=== PATIENT | male | born 1960 | race Caucasian/White ===

== ENCOUNTER 2017-08-08 07:42 | Emergency (ER) | payer BC ==
[2017-08-08] MEDS ORDERED: NS 0.9% 1000 ML* 1,000 ML IV ONE ×2 (07:53→08:29)
[2017-08-08] MEDS ORDERED: Nitroglycerin TAB 0.4 MG* 0.4 MG TAB SL ONE (08:06)
[2017-08-08] MEDS ORDERED: Aspirin Low Dose CHEW TAB* 81 MG PO ONE (08:06)
[2017-08-08 08:28] LABS: ABS Basophils 0 10^3/ul (0-0.2); ABS Eosinophils 0.1 10^3/ul (0-0.6); ABS Lymphocytes 1.4 10^3/ul (1.0-4.8); ABS Monocytes 0.6 10^3/ul (0-0.8); ABS Neutrophils 4.5 10^3/ul (1.5-7.7); ABS Nucleated RBC 0 10^3/ul; Eosinophil % 1.5 % (0-6); Hematocrit 44 % (42-52); Hemoglobin 15.1 g/dl (14.0-18.0); Lymphocyte % 21.1 % (25-47); Mean Corpuscular HGB Conc 34 g/dl (31-36); Mean Corpuscular Hemoglobin 31 pg (27-31); Mean Corpuscular Volume 89 fL (80-94); Mean Platelet Volume 9 um3 (7.4-10.4); Nucleated Red Blood Cells % 0; Platelet Count 213 10^3/ul (150-450); Red Blood Count 4.94 10^6/ul (4.0-5.4); Red Cell Distribution Width 13 % (10.5-15); White Blood Count 6.6 10^3/ul (3.5-10.8)
--- NOTE | 2017-08-08 08:28 | RAD ---
INDICATION: Left chest pain shortness of breath x4 days COMPARISON: None. TECHNIQUE: Single AP portable view of the chest was obtained. FINDINGS: Image quality is compromised due to the relative inferiority of a portable chest x-ray. The heart and mediastinum exhibit normal size and contour. At the left lateral lung base there is linear density. The more superior left lung and right lung are otherwise adequately aerated. There is no evidence of a large pleural effusion. Visualized bones are normal for the patient's age. IMPRESSION: Linear density at the left lung base could represent atelectasis or pneumonia depending on the patient's clinical presentation.
[2017-08-08] MEDS ORDERED: Ondansetron INJ* 2 MG/ML VIAL IV ONE (08:29)
[2017-08-08] MEDS ORDERED: Ondansetron INJ* 2 MG/ML VIAL ONE (08:31)
[2017-08-08 08:43] LABS: INR 0.94 (0.77-1.02)
[2017-08-08 08:46] LABS: EGFR Non-African American 77.6 (>60)
[2017-08-08] MEDS ORDERED: Iohexol 350* (CONTRAST) 500 ML MDV IV ONE (08:58)
--- NOTE | 2017-08-08 10:03 | RAD ---
Indication: Left chest pain. Contrast: Administered 69.1 ml of OMNIPAQUE 350 mg/ml CTA of the chest was performed after IV contrast administration. Coronal and sagittal reconstructed images were obtained. The pulmonary arterial tree is well opacified. There are no filling defects present to suggest pulmonary embolus. The aorta demonstrates no evidence of aortic dissection or aneurysmal dilatation of the aorta. There is a rounded low density in the prevascular space may represent some fluid or low density lymph node measuring 12 mm. The heart demonstrates no pericardial effusion. No other adenopathy is noted in the mediastinum or hilum. Inferior thyroid lobes are unremarkable. The trachea and major bronchi appear patent. There is airspace disease in the left base with left pleural effusion. This may represent pneumonia. Right lung field is clear. IMPRESSION: No evidence of pulmonary embolus is noted. No aortic dissection is noted. There is left pleural effusion with likely left lower lobe infiltrate. Likely low density lymph node in the prevascular space measuring up to 12 mm.
[2017-08-08] MEDS ORDERED: Ibuprofen TAB* 600 MG PO ONE (11:03)
--- NOTE | 2017-08-08 12:45 | ED ---
Weston Polo Angela, scribed for Rogelio Alvarez MD on 08/08/17 at 0757 . HPI Chest Pain - HPI Summary HPI Summary: This pt is 57 y/o male presenting to [facility] c/o intermittent left sided chest pain x3 days. Pt reports his pain is located under his left breast. He describes his pain as stabbing pain. Pt's pain is aggravated with palpation. Pt additionally notes SOB and having to catch his breath when talking. He notes his chest pain yesterday lasted approximately 30 to 45 minutes. Pt took Advil yesterday with complete relief. This morning pt reports he felt better and was driving to work at around 07:15 when he had sudden onset of stabbing chest pain. At its worst his pain is rated 7 out of 10 in severity. Denies abd pain, rash, LE swelling. He denies taking any aspirin today [employer]. 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 Pt has never had a stress test in the past. FHx: mother's brother had IN at around his age. - History of Current Complaint Chief Complaint: EDChestPainROMI Hx Obtained From: Patient Onset/Duration: Started Days Ago, Still Present Timing: Intermittent, Lasting Days Initial Severity: Severe Current Severity: Mild Pain Intensity: 7 Pain Scale Used: 0-10 Numeric Chest Pain Location: Left Anterior Chest Pain Radiates: No Character: Sharp/Stabbing - stabbing Aggravating Factor(s): Other: - palpation Alleviating Factor(s): Nothing Associated Signs and Symptoms: Positive: Chest Pain, Shortness of Breath. Negative: Fever, Abdominal Pain, Calf Pain/Swelling - Allergy/Home Medications Allergies/Adverse Reactions: Allergies Allergy/AdvReac Type Severity Reaction Status Date / Time No Known Allergies Allergy Verified 08/08/17 07:47 PMH/Surg Hx/FS Hx/Imm Hx Endocrine/Hematology History: Denies: Hx Diabetes Cardiovascular History: Reports: Other Cardiovascular Problems/Disorders - borderline high cholesterol Denies: Hx Hypertension Infectious Disease History: No Infectious Disease History: Denies: Traveled Outside the [place] in Last 30 Days - Family History Known Family History: Positive: Cardiac Disease - Mother's brother: IN at around 55 y/o Negative: Diabetes - Social History Alcohol Use: Daily Substance Use Type: Reports: Marijuana Smoking Status (MU): Never Smoked Tobacco Review of Systems Negative: Fever Positive: Chest Pain Positive: Shortness Of Breath Negative: Abdominal Pain Negative: Edema - in LE Negative: Rash All Other Systems Reviewed And Are Negative: Yes Physical Exam - Summary Physical Exam Summary: General: well-appearing, in a lot of pain distress Skin: warm, color reflects adequate perfusion, dry Head: normal Eyes: EOMI, JN ENT: normal Neck: supple, nontender Respiratory: CTA, breath sounds present Chest: tender to palpation on left anterior chest Cardiovascular: RRR Abdomen: soft, nontender Bowel: present Musculoskeletal: normal, strength/ROM intact Neurological: normal, sensory/motor intact, A&O x3 Psychological: affect/mood appropriate Triage Information Reviewed: Yes Vital Signs On Initial Exam: Initial Vitals Temp Pulse Resp BP Pulse Ox 97.3 F 69 16 120/74 100 08/08/17 07:43 08/08/17 07:43 08/08/17 07:43 08/08/17 07:43 08/08/17 07:43 Vital Signs Reviewed: Yes Diagnostics - Vital Signs Vital Signs Temp Pulse Resp BP Pulse Ox 08/08/17 07:43 97.3 F 69 16 120/74 100 - Laboratory Lab Results: Lab Results 08/08/17 08/08/17 08/08/17 Range/Units 08:17 08:17 08:17 WBC (3.5-10.8) 10^3/ul RBC (4.0-5.4) 10^6/ul Hgb (14.0-18.0) g/dl Hct (42-52) % MCV (80-94) fL MCH (27-31) pg MCHC (31-36) g/dl RDW (10.5-15) % Plt Count (150-450) 10^3/ul MPV (7.4-10.4) um3 Neut % (Auto) (38-83) % Lymph % (Auto) (25-47) % Benton % (Auto) (0-7) % Eos % (Auto) (0-6) % Baso % (Auto) (0-2) % Absolute Neuts (auto) (1.5-7.7) 10^3/ul Absolute Lymphs (auto) (1.0-4.8) 10^3/ul Absolute Monos (auto) (0-0.8) 10^3/ul Absolute Eos (auto) (0-0.6) 10^3/ul Absolute Basos (auto) (0-0.2) 10^3/ul Absolute Nucleated RBC 10^3/ul Nucleated RBC % INR (Anticoag Therapy) 0.94 (0.77-1.02) APTT 35.3 (26.0-36.3) seconds D-Dimer, Quantitative < 200 (Less Than 230) ng/mL Sodium 136 (133-145) mmol/L Potassium 4.2 (3.5-5.0) mmol/L Chloride 101 (101-111) mmol/L Carbon Dioxide 31 (22-32) mmol/L Anion Gap 4 (2-11) mmol/L BUN 11 (6-24) mg/dL Creatinine 1.00 (0.67-1.17) mg/dL Est GFR ( Amer) 99.8 (>60) Est GFR (Non-Af Amer) 77.6 (>60) BUN/Creatinine Ratio 11.0 (8-20) Glucose 97 (70-100) mg/dL Lactic Acid (0.5-2.0) mmol/L Calcium 9.8 (8.6-10.3) mg/dL Magnesium 1.9 (1.9-2.7) mg/dL Total Bilirubin 0.60 (0.2-1.0) mg/dL AST 14 (13-39) U/L ALT 15 (7-52) U/L Alkaline Phosphatase 67 (34-104) U/L Total Creatine Kinase 142 (10-223) U/L CK-MB (CK-2) 1.2 (0.6-6.3) ng/mL Troponin I 0.00 (<0.04) ng/mL B-Natriuretic Peptide 23 ( - 100) pg/mL Total Protein 6.9 (6.4-8.9) g/dL Albumin 4.4 (3.2-5.2) g/dL Globulin 2.5 (2-4) g/dL Albumin/Globulin Ratio 1.8 (1-3) Lipase 18 (11.0-82.0) U/L TSH 3.95 (0.34-5.60) mcIU/mL 08/08/17 08/08/17 08/08/17 Range/Units 08:17 08:17 10:45 WBC 6.6 (3.5-10.8) 10^3/ul RBC 4.94 (4.0-5.4) 10^6/ul Hgb 15.1 (14.0-18.0) g/dl Hct 44 (42-52) % MCV 89 (80-94) fL MCH 31 (27-31) pg MCHC 34 (31-36) g/dl RDW 13 (10.5-15) % Plt Count 213 (150-450) 10^3/ul MPV 9 (7.4-10.4) um3 Neut % (Auto) 67.3 (38-83) % Lymph % (Auto) 21.1 L (25-47) % Benton % (Auto) 9.5 H (0-7) % Eos % (Auto) 1.5 (0-6) % Baso % (Auto) 0.6 (0-2) % Absolute Neuts (auto) 4.5 (1.5-7.7) 10^3/ul Absolute Lymphs (auto) 1.4 (1.0-4.8) 10^3/ul Absolute Monos (auto) 0.6 (0-0.8) 10^3/ul Absolute Eos (auto) 0.1 (0-0.6) 10^3/ul Absolute Basos (auto) 0 (0-0.2) 10^3/ul Absolute Nucleated RBC 0 10^3/ul Nucleated RBC % 0 INR (Anticoag Therapy) (0.77-1.02) APTT (26.0-36.3) seconds D-Dimer, Quantitative (Less Than 230) ng/mL Sodium (133-145) mmol/L Potassium (3.5-5.0) mmol/L Chloride (101-111) mmol/L Carbon Dioxide (22-32) mmol/L Anion Gap (2-11) mmol/L BUN (6-24) mg/dL Creatinine (0.67-1.17) mg/dL Est GFR ( Amer) (>60) Est GFR (Non-Af Amer) (>60) BUN/Creatinine Ratio (8-20) Glucose (70-100) mg/dL Lactic Acid 0.9 (0.5-2.0) mmol/L Calcium (8.6-10.3) mg/dL Magnesium (1.9-2.7) mg/dL Total Bilirubin (0.2-1.0) mg/dL AST (13-39) U/L ALT (7-52) U/L Alkaline Phosphatase (34-104) U/L Total Creatine Kinase (10-223) U/L CK-MB (CK-2) (0.6-6.3) ng/mL Troponin I 0.00 (<0.04) ng/mL B-Natriuretic Peptide ( - 100) pg/mL Total Protein (6.4-8.9) g/dL Albumin (3.2-5.2) g/dL Globulin (2-4) g/dL Albumin/Globulin Ratio (1-3) Lipase (11.0-82.0) U/L TSH (0.34-5.60) mcIU/mL Result Diagrams: 18 08:17 18 08:17 Lab Statement: Any lab studies that have been ordered have been reviewed, and results considered in the medical decision making process. - Radiology Chest XR Xray Interpretation: Positive (See Comments) - IMPRESSION: Linear density at the left lung base could represent atelectasis or pneumonia depending on the patient's clinical presentation. Dr. Alvarez has reviewed this radiology report. Radiology Interpretation Completed By: Radiologist - CT Chest/Thorax CTA CT Interpretation: Positive (See Comments) - IMPRESSION: No evidence of pulmonary embolus is noted. No aortic dissection is noted. There is left pleural effusion with likely left lower lobe infiltrate. Likely low density lymph node in the prevascular space measuring up to [address] Alvarez has reviewed this radiology report. CT Interpretation Completed By: Radiologist - EKG 07:58 Cardiac Rate: NL EKG Rhythm: Sinus Rhythm - at [address] Segment: Normal Ectopy: None 08:30 Cardiac Rate: NL EKG Rhythm: Sinus Rhythm - at [address] Segment: Normal Ectopy: None Re-Evaluation - Re-Evaluation First Eval Re-Evaluation Time: 08:53 Comment: I reviewed the chest XR results with the pt. Second Eval Re-Evaluation Time: 10:51 Comment: I reviewed chest CTA and lab results with the pt. Third Eval Re-Evaluation Time: 12:06 Comment: I reviewed the lab results with the pt. He will be discharged home. Chest Pain Course/Dx - Course Course Of Treatment: Medications reviewed. Allergies noted. PLEURAL EFFUSION AND INFILTRATE AT LEFT LUNG BASE WHICH IS WHERE THE PATIENT'S PAIN IS LOCATED. PAIN STARTED 3 DAYS AGO. HAD PAIN AT LEAST FOR 45 MINUTES YESTERDAY. SECOND TROPONIN 0. PAIN GONE IN ED. WILL TREAT WITH ZPAC FOR POSSIBLE INFECTIOUS ETIOLOGY. IBUPROFEN FOR INFLAMMATION. RESULTS DISCUSSED WITH THE PATIENT AND HIS . F/U PMD; RETURN IF WORSE. - Diagnoses Provider Diagnoses: Pleural effusion on left, Chest pain Discharge - Discharge Plan Condition: Stable Disposition: HOME Prescriptions: Azithromycin TAB* [Zithromax TAB (Z-UMESH) 250 mg #6 tabs] 250 mg PO DAILY #4 tab Patient Education Materials: Chest Pain (ED), Pleural Effusion (ED) Referrals: Alli Marcum MD [Primary Care Provider] - Additional Instructions: FOLLOW UP WITH YOUR DOCTOR THIS WEEK. TAKE IBUPROFEN 600MG EVERY 6 HOURS NEEDED. RETURN TO THE EMERGENCY DEPARTMENT FOR ANY WORSENING OF YOUR CONDITION; PAIN, SHORTNESS OF BREATH, YOU FEEL ILL OR QUESTIONS OR CONCERNS. The documentation as recorded by the Weston baer Angela accurately reflects the service I personally performed and the decisions made by me, Rogelio Alvarez MD.
[2017-08-08 12:51] VITALS: BP 112/58
== END 2017-08-08 12:50 | disposition home or self-care (01) ==
LOC: ED 07:42
DX: J90 Pleural effusion, not elsewhere classified (principal); R07.9 Chest pain, unspecified; R06.02 Shortness of breath
CPT/HCPCS: 36415; 71045; 71275; 80053; 82550; 82553; 83605; 83690; 83735; 83880; 84443; 84484; 85025; 85379; 85610; 85730; 93005; 96374; 99285; A9270-GY; J2405; Q9967